=== PATIENT | male | born 1960 | race Caucasian/White ===

== ENCOUNTER 2018-07-17 15:24 | Emergency (ER) | payer OTHER ==
[~2018-07-17] VITALS: Ht 167.6 cm; Wt 80.7 kg
[2018-07-17 15:33] VITALS: BP 146/86
[2018-07-17] MEDS ORDERED: NACL 0.9% 1,000 ML IV SCH (15:48)
[2018-07-17] MEDS ORDERED: KETOROLAC 30 MG/ML VIAL IVP ONE (15:50)
--- NOTE | 2018-07-17 16:00 | NUR ---
Note jefryjose miguel in EDM - 07/17/18 at 1611 by [email or web address] 57/M BIB DAUGHTER W/C/O PAIN R GROIN PAIN & SWELLING X 2 WEEKS. PT STATES ALSO HAD BLOOD IN URINE OFF AND ON X 3 MONTHS. PMH: HTN, HYPERLIPIDEMIA . RX: DONT' REMEMBER PER PT. RX FOR HTN
--- NOTE | 2018-07-17 16:00 | NUR ---
57/M BIB DAUGHTER W/C/O PAIN R GROIN PAIN & SWELLING X 2 WEEKS. PT STATES ALSO HAD BLOOD IN URINE OFF AND ON X 3 MONTHS. PMH: HTN, HYPERLIPIDEMIA . RX: DONT' REMEMBER PER PT. RX FOR HTN. DENIES N/V/D. AAOX4 WITH EVEN AND STEADY GAIT; LUNGS CLEAR BL. PT DENIES ANY FEVER, CP, SOB, OR COUGH AT THIS TIME; PATIENT STATES PAIN OF 10/10 AT THIS TIME. PATIENT POSITIONED FOR COMFORT; HOB ELEVATED; BEDRAILS UP X2; BED DOWN. ER MD MADE AWARE OF PT STATUS.
[2018-07-17 16:08] LABS: BASOPHILS % (AUTO) 0.7 % (0.0-2.0); EOSINOPHILS # (AUTO) 0.1 K/uL (0-0.4); HEMATOCRIT 37.6 % (36-52); LYMPHOCYTES # (AUTO) 2.2 K/uL (2.0-11.5); LYMPHOCYTES % (AUTO) 39.8 % (20.5-51.1); MEAN CORPUSCULAR HEMOGLOBIN 24 pg (27-31); MEAN CORPUSCULAR HGB CONC 32 g/dL (33-37); MEAN CORPUSCULAR VOLUME 75.7 fL (80-94); MONOCYTES # (AUTO) 0.4 K/uL (0.8-1.0); MONOCYTES % (AUTO) 7.2 % (1.7-9.3); NEUTROPHILS # (AUTO) 2.9 K/uL (1.8-7.7); NEUTROPHILS % (AUTO) 51.3 % (42.2-75.2); PLATELET COUNT (AUTO) 186 K/uL (140-450); RED BLOOD CELL COUNT(AUTO) 4.97 MIL/uL (4.20-6.10); RED CELL DISTRIBUTION WIDTH 15.1 % (11.6-13.7); WHITE BLOOD COUNT (AUTO) 5.6 K/uL (4.8-10.8)
[2018-07-17 16:22] LABS: ANION GAP 4.7 (8-16); CARBON DIOXIDE 31.9 mmol/L (21-32); CREATININE 0.9 mg/dL (0.7-1.3); POTASSIUM 3.6 mmol/L (3.5-5.1)
--- NOTE | 2018-07-17 16:27 | NUR ---
Patient being evaluated by DR PERALES at bedside.
[2018-07-17 16:28] LABS: ALBUMIN 3.9 g/dL (3.4-5.0); TOTAL BILIRUBIN 0.3 mg/dL (0.0-1.0)
--- NOTE | 2018-07-17 16:29 | NUR ---
Chloe madera in [facility] - 07/17/18 at 1630 by [email or web address] Patient being evaluated by physician at bedside.
--- NOTE | 2018-07-17 16:35 | NUR ---
pt taken to ct
[2018-07-17 17:50] VITALS: BP 143/81
--- NOTE | 2018-07-17 17:50 | NUR ---
Patient discharged with v/s stable. Written and verbal after care instructions given and explained. Patient alert, oriented and verbalized understanding of instructions. Ambulatory with steady gait. All questions addressed prior to discharge. ID band removed. Patient advised to follow up with PMD. Rx of motrin and norco given. Patient educated on indication of medication including possible reaction and side effects. Opportunity to ask questions provided and answered.
== END 2018-07-17 17:50 | disposition home or self-care (01) ==
LOC: MED 15:24
DX: K40.90 Unilateral inguinal hernia, without obstruction or gangrene, not specified as recurrent (principal); I10 Essential (primary) hypertension
CPT/HCPCS: 36415; 74176; 80053; 81002; 83690; 85025; 96374; 99285; J1885; J7030

== ENCOUNTER 2018-11-11 13:34 | Emergency (ER) | payer OTHER ==
[~2018-11-11] VITALS: Ht 182.9 cm; Wt 81.6 kg
[2018-11-11 13:40] VITALS: BP 138/64
--- NOTE | 2018-11-11 13:42 | NUR ---
pt triaged and sent to er lobby
--- NOTE | 2018-11-11 14:12 | NUR ---
PT AMBULATES TO BED 3
--- NOTE | 2018-11-11 14:20 | NUR ---
SEEKING EKG BEFORE GETTING SURGERY AT [facility] ON SUNDAY FOR HERNIA. DENIES N/V/D; SKIN IS PINK/WARM/DRY; AAOX4 WITH EVEN AND STEADY GAIT; LUNGS CLEAR BL; HR EVEN AND REGULAR; PT DENIES ANY FEVER, CP, SOB, OR COUGH AT THIS TIME; PATIENT STATES PAIN OF 0/10 AT THIS TIME; VSS; PATIENT POSITIONED FOR COMFORT; HOB ELEVATED; BEDRAILS UP X2; BED DOWN. ER MD MADE AWARE OF PT STATUS.
[2018-11-11 15:13] VITALS: BP 138/64
--- NOTE | 2018-11-11 15:14 | NUR ---
Patient discharged with v/s stable. Written and verbal after care instructions given and explained. Patient verbalized understanding. Ambulatory with steady gait. All questions addressed prior to discharge. Advised to follow up with PMD.
== END 2018-11-11 15:14 | disposition home or self-care (01) ==
LOC: MED 13:34
DX: K40.90 Unilateral inguinal hernia, without obstruction or gangrene, not specified as recurrent (principal); I10 Essential (primary) hypertension
CPT/HCPCS: 93005; 99283

== ENCOUNTER 2020-11-26 15:51 | Emergency (ER) | payer OTHER ==
[~2020-11-26] VITALS: Ht 165.1 cm; Wt 74.8 kg
[2020-11-26 16:12] VITALS: BP 110/73
--- NOTE | 2020-11-26 16:24 | NUR ---
60 Y/O MALE C/O SUBJECTIVE FEVER, CHILLS, MYALGIA. PT TESTED + X5DAYS AGO WITH WORSENING SYMPTOMS. PLEURTIC CHEST PAIN 8/10, TOOK TYNENOL AND DAYQUIL. PMH: HTN, AND ANXIETY NKA
--- NOTE | 2020-11-26 16:49 | NUR ---
Pt ambulated with [facility] for chest XR.
[2020-11-26 17:53] VITALS: BP 110/73
--- NOTE | 2020-11-26 17:55 | NUR ---
Patient discharged with v/s stable. Written and verbal after care instructions given and explained. Patient alert, oriented and verbalized understanding of instructions. Ambulatory with steady gait. All questions addressed prior to discharge. ID band removed. Patient advised to follow up with PMD. Rx of naprosyn 500mg BID with meals, Tessalon Perles 100mg TID, azithromycin 250mg 2 tabs day 1, 1 tab day 2-5, and albuterol 90 mcg/actuation inhalation aerosol q4h PO given. Patient educated on indication of medication including possible reaction and side effects. Opportunity to ask questions provided and answered.
== END 2020-11-26 17:55 | disposition home or self-care (01) ==
LOC: MED 15:51
DX: U07.1 COVID-19 (principal); I10 Essential (primary) hypertension; Z98.890 Other specified postprocedural states
CPT/HCPCS: 71045; 93005; 99283

== ENCOUNTER 2021-02-15 07:46 | Emergency (ER) | payer OTHER ==
[~2021-02-15] VITALS: Ht 182.9 cm; Wt 81.6 kg
[2021-02-15 07:51] VITALS: BP 165/91
--- NOTE | 2021-02-15 08:10 | NUR ---
60 Y/O MALE BIB DAUGHTER C/O NOSE BLEED X TODAY. PT STATES NOSE BLEEDS MIGHT BE RELATED TO HIGH BLOOD PRESSURE; INCIDENTS HAVE BEEN OCCURRING MORE FREQUENTLY. PT STATES FLOW IS HIGH, STOPS WHEN PRESSURE IS APPLIED TO NOSE. BP AT BEDSIDE 140/72, HR 84. PT DENIES ADMIN OF ANTICOAGULANTS. COMPLIANT WITH PRESCRIBED HTN MEDICATION ADMIN. AO4, BREATHING EVEN AND UNLABORED, SKIN WARM AND DRY. BED IN LOWEST POSITION, LOCKED, X1 SIDERAIL UP. DAUGHTER AT BEDSIDE; PT CONNECTED TO MONITOR. PMH - HTN NKA
[2021-02-15 08:28] LABS: BASOPHILS % (AUTO) 0.9 % (0.0-2.0); EOSINOPHILS # (AUTO) 0.1 K/uL (0-0.4); EOSINOPHILS % (AUTO) 1.7 % (0.0-4.0); HEMATOCRIT 37.2 % (36-52); LYMPHOCYTES # (AUTO) 1.5 K/uL (2.0-11.5); LYMPHOCYTES % (AUTO) 45.1 % (20.5-51.1); MEAN CORPUSCULAR HEMOGLOBIN 25 pg (27-31); MEAN CORPUSCULAR HGB CONC 32 g/dL (33-37); MEAN CORPUSCULAR VOLUME 76.3 fL (80-94); MONOCYTES # (AUTO) 0.3 K/uL (0.8-1.0); MONOCYTES % (AUTO) 10.2 % (1.7-9.3); NEUTROPHILS # (AUTO) 1.4 K/uL (1.8-7.7); NEUTROPHILS % (AUTO) 42.1 % (42.2-75.2); PLATELET COUNT (AUTO) 159 K/uL (140-450); RED BLOOD CELL COUNT(AUTO) 4.88 MIL/uL (4.20-6.10); RED CELL DISTRIBUTION WIDTH 15.4 % (11.6-13.7); WHITE BLOOD COUNT (AUTO) 3.2 K/uL (4.8-10.8)
[2021-02-15 08:44] LABS: ANION GAP 10.2 (8-16); CARBON DIOXIDE 26.8 mmol/L (21-32)
[2021-02-15 08:48] LABS: PROTHROMBIN TIME 10.1 secs (10.8-13.4)
[2021-02-15] MEDS ORDERED: OXYM30SP NS (08:56)
--- NOTE | 2021-02-15 09:00 | NUR ---
PT AND DAUGHTER APPEAR TO BE IN DISTRESS. WERE ASKED IF EVERYTHING WAS OKAY, DAUGHTER STOOD UP, WALKED OUT OF EMERGENCY ROOM. PT REMAINS AT BEDSIDE; CONNECETD TO MONITOR. BEST HE COULD, PT VERBALIZED "I AM OKAY". WILL CONTINUE TO ASSESS.
--- NOTE | 2021-02-15 09:32 | NUR ---
Patient discharged with v/s stable. Written and verbal after care instructions ABOUT NOSEBLEED AND HYPERTENSION given and explained. Patient alert, oriented and verbalized understanding of instructions. Ambulatory with steady gait. All questions addressed prior to discharge. ID band removed. Patient advised to follow up with PMD. Rx of OXYMETAZOLINE given. Patient educated on indication of medication including possible reaction and side effects. Opportunity to ask questions provided and answered.
[2021-02-15 09:38] VITALS: BP 140/72
== END 2021-02-15 09:32 | disposition home or self-care (01) ==
LOC: MED 07:46
DX: R04.0 Epistaxis (principal); I10 Essential (primary) hypertension; Z79.899 Other long term (current) drug therapy
CPT/HCPCS: 36415; 80048; 85025; 85610; 99283

== ENCOUNTER 2021-12-11 21:36 | Emergency (ER) | payer OTHER ==
[~2021-12-11] VITALS: Ht 167.6 cm; Wt 81.6 kg
[~2021-12-11 21:36] MED LIST: OXYM30SP NS
[2021-12-11 22:24] VITALS: BP 126/88
[2021-12-11] MEDS ORDERED: ASPIRIN 325 MG TAB PO ONE (22:25)
[2021-12-11] MEDS ORDERED: NITROGLYCERIN 2% 1 GM PKT TP ONE (22:25)
[2021-12-11 23:21] LABS: BASOPHILS % (AUTO) 0.6 % (0.0-2.0); EOSINOPHILS # (AUTO) 0.1 K/uL (0-0.4); EOSINOPHILS % (AUTO) 1.3 % (0.0-4.0); HEMATOCRIT 36.8 % (36-52); HEMOGLOBIN 12.1 g/dL (12.0-18.0); LYMPHOCYTES # (AUTO) 2.3 K/uL (2.0-11.5); LYMPHOCYTES % (AUTO) 48.3 % (20.5-51.1); MEAN CORPUSCULAR HEMOGLOBIN 24 pg (27-31); MEAN CORPUSCULAR HGB CONC 33 g/dL (33-37); MONOCYTES # (AUTO) 0.6 K/uL (0.8-1.0); MONOCYTES % (AUTO) 13.5 % (1.7-9.3); NEUTROPHILS # (AUTO) 1.7 K/uL (1.8-7.7); NEUTROPHILS % (AUTO) 36.3 % (42.2-75.2); PLATELET COUNT (AUTO) 180 K/uL (140-450); RED BLOOD CELL COUNT(AUTO) 4.98 MIL/uL (4.20-6.10); RED CELL DISTRIBUTION WIDTH 15.5 % (11.6-13.7); WHITE BLOOD COUNT (AUTO) 4.8 K/uL (4.8-10.8)
--- NOTE | 2021-12-11 23:30 | NUR ---
TO CHAIR C FOLLOWING TRIAGE
[2021-12-11 23:39] LABS: ALBUMIN 3.6 g/dL (3.4-5.0); ANION GAP 12.5 (8-16); CARBON DIOXIDE 28.5 mmol/L (21-32); CREATININE 0.9 mg/dL (0.6-1.3); TOTAL BILIRUBIN 0.3 mg/dL (0.0-1.0)
[2021-12-11] MEDS ORDERED: ASPIRIN 325 MG TAB ONE (23:59)
[2021-12-12] MEDS ORDERED: NITROGLYCERIN 2% 1 GM PKT TP ONE
[2021-12-12 01:43] VITALS: BP 126/88
== END 2021-12-12 01:43 | disposition home or self-care (01) ==
LOC: MED 21:36
DX: R07.89 Other chest pain (principal); R51.9 Headache, unspecified; I10 Essential (primary) hypertension; Z79.899 Other long term (current) drug therapy
CPT/HCPCS: 36415; 80053; 84484; 85025; 93005; 99284

== ENCOUNTER 2023-10-13 21:41 | Emergency (ER) | payer OTHER ==
[~2023-10-13] VITALS: Ht 172.7 cm; Wt 113.4 kg
[2023-10-13 22:06] VITALS: BP 139/97; PULSE 74; RESP 18; TEMP 97; O2SAT 99
[2023-10-13 22:51] VITALS: BP 139/97; PULSE 74; RESP 18; TEMP 97
[2023-10-13 22:52] VITALS: O2SAT 99
[2023-10-14] MEDS ORDERED: LIDOCAINE 4% 1 EA PATCH TP ONE (00:05)
[2023-10-14] MEDS ORDERED: KETOROLAC 60 MG/2 ML VIAL IM ONE (00:05)
[2023-10-14] MEDS ORDERED: CYCLOBENZAPRINE 10 MG TAB PO ONE (01:15)
[2023-10-14] MEDS ORDERED: CYCL-711 PO (01:18)
[2023-10-14] MEDS ORDERED: LIDO76.56 TP (01:18)
[2023-10-14] MEDS ORDERED: IBUP-2218 PO (01:18)
[2023-10-14] MEDS ORDERED: ACET-9882 PO (01:18)
== END 2023-10-14 01:35 | disposition home or self-care (01) ==
LOC: MED 21:41
DX: S39.012A Strain of muscle, fascia and tendon of lower back, initial encounter (principal); I10 Essential (primary) hypertension; Z79.899 Other long term (current) drug therapy; X58.XXXA Exposure to other specified factors, initial encounter; Y93.89 Activity, other specified; Y92.89 Other specified places as the place of occurrence of the external cause; Y99.8 Other external cause status
CPT/HCPCS: 72110; 96374; 99283; J1885; 96372